=== PATIENT | female | born 1945 | race Two or more races ===

== ENCOUNTER 2024-04-06 13:02 | Inpatient (IN) | payer MEDICARE, OTHER ==
[~2024-04-06] VITALS: Ht 162.6 cm; Wt 61.7 kg
[2024-04-06] MEDS ORDERED: INSULIN REGULAR, HUMAN 100 UNIT/ML 10 ML VIAL ONE (13:15)
[2024-04-06] MEDS: IV NS 0.9% 500 ML BAG IV ONE (13:21)
[2024-04-06] MEDS: INSULIN REGULAR, HUMAN 100 UNIT/ML 10 ML VIAL SQ ONE (13:23)
[2024-04-06 13:47] LABS: BASOPHILS % (AUTO) 0.6 % (0.0-2.0); EOSINOPHILS # (AUTO) 0.1 K/uL (0.0-0.7); HEMATOCRIT 40 % (33-45); HEMOGLOBIN 13.8 g/dL (11.5-14.8); LYMPHOCYTES % (AUTO) 14.7 % (20.0-44.0); MEAN CORPUSCULAR HEMOGLOBIN 31 PG (26.0-33.0); MEAN CORPUSCULAR HGB CONC 35 g/dl (31.0-36.0); MEAN CORPUSCULAR VOLUME 90 fL (82-100); MONOCYTES # (AUTO) 0.3 K/uL (0.1-1.30); MONOCYTES % (AUTO) 4.5 % (2.0-12.0); NEUTROPHILS # (AUTO) 5.2 K/uL (1.8-8.9); NEUTROPHILS % (AUTO) 79.2 % (43.0-81.0); PLATELET COUNT (AUTO) 124 K/uL (150-450); RED CELL DISTRIBUTION WIDTH 12.7 % (11.5-15.0); WHITE BLOOD COUNT (AUTO) 6.5 K/uL (4.3-11.0)
[2024-04-06 14:31] LABS: APPEARANCE,URINE CLEAR (CLEAR); BILIRUBIN,URINE NEGATIVE (NEGATIVE); BLOOD, URINE NEGATIVE Ery/uL (NEGATIVE); COLOR,URINE YELLOW (YELLOW); KETONES,URINE NEGATIVE (NEGATIVE); LEUKOCYTE ESTERASE ,URINE NEGATIVE (NEGATIVE); NITRITE, URINE NEGATIVE (NEGATIVE); PROTEIN,URINE 3+ mg/dl (NEGATIVE); UGLUCOSE 3+ mg/dL (NEGATIVE); UROBILINOGEN,URINE 0.2 EU/dL (0.2)
[2024-04-06 14:43] LABS: ADD URINE CULTURE NO; BACTERIA,URINE Few /HPF (None Seen); RBC,URINE 0-2 /HPF (0-2); SQUAMOUS EPITHELIAL CELL,UR Few /HPF (None Seen)
[2024-04-06 14:44] LABS: COARSE GRANULAR CASTS,URINE Few /LPF (None Seen)
[2024-04-06 15:09] LABS: CALCIUM, SERUM 9.1 mg/dL (8.5-10.1); CARBON DIOXIDE 23 mmol/L (21-32); CHLORIDE 97 mmol/L (98-107); CREATININE 2.1 mg/dL (0.6-1.3); POTASSIUM 3.6 mmol/L (3.5-5.1); SODIUM SERUM 130 mmol/L (136-145); UREA NITROGEN, BLOOD 27 mg/dL (7-18)
[2024-04-06 15:11] LABS: ALANINE AMINOTRANSFERASE 15 U/L (12-78); ALBUMIN 1.7 g/dL (3.4-5.0); ALKALINE PHOSPHATASE 201 U/L (46-116); ASPARTATE AMINOTRANSFERASE 10 U/L (15-37); BILIRUBIN,DIRECT 0.2 mg/dL (0.0-0.2); BILIRUBIN,TOTAL 0.6 mg/dL (0.2-1.0); LIPASE 76 U/L (16-77); TOTAL PROTEIN, SERUM 5.7 g/dL (6.4-8.2)
[2024-04-06 15:12] LABS: GLUCOSE 664 mg/dL (74-106)
[2024-04-06] MEDS ORDERED: CALC500T53 PO (16:18)
[2024-04-06] MEDS ORDERED: LOSA100T31 PO (16:18)
[2024-04-06] MEDS ORDERED: HYDR100T27 PO (16:18)
[2024-04-06] MEDS ORDERED: INSU100I4 SQ (16:18)
[2024-04-06] MEDS ORDERED: FURO40TA5 PO (16:18)
[2024-04-06] MEDS ORDERED: ERGO500093 PO (16:18)
[2024-04-06] MEDS ORDERED: ATOR20TA PO (16:18)
[2024-04-06] MEDS ORDERED: LEVO75TA7 PO (16:18)
[2024-04-06] MEDS ORDERED: GLIP10TA11 PO (16:18)
[2024-04-06] MEDS ORDERED: INSU300I3 SQ (16:18)
[2024-04-06] MEDS ORDERED: LINA5TAB PO (16:18)
[2024-04-06] MEDS ORDERED: CARV12.52 PO (16:18)
[2024-04-06] MEDS ORDERED: MAGNESIUM HYDROXIDE 30 ML UDC PO PRN (16:30)
[2024-04-06] MEDS ORDERED: ONDANSETRON HCL/PF 4 MG/2 ML VIAL IVP PRN (16:30)
[2024-04-06] MEDS ORDERED: DEXTROSE 50%-WATER 50 ML DISP.SYRIN IV PRN ×2 (16:30)
[2024-04-06] MEDS ORDERED: INSULIN REGULAR, HUMAN 100 UNIT/ML 3 ML VIAL SQ PRN (16:30)
[2024-04-06] MEDS ORDERED: BLOOD SUGAR DIAGNOSTIC 1 EACH STRIP IN SCH (17:30)
[2024-04-06] MEDS: IV NS 0.9% 1,000 ML IV SCH (18:39)
[2024-04-06] MEDS: INSULIN REGULAR, HUMAN 100 UNIT/ML 3 ML VIAL SQ PRN (18:42)
[2024-04-06] MEDS: BLOOD SUGAR DIAGNOSTIC 1 EACH STRIP IN SCH (18:42)
[2024-04-06 19:51] VITALS: BP 160/60; TEMP 97.7; O2SAT 98
[2024-04-06 20:00] VITALS: BP 146/68; TEMP 98.2; O2SAT 96
[2024-04-06] MEDS: ACETAMINOPHEN 325 MG TABLET PO PRN (21:17)
[2024-04-06] MEDS: INSULIN GLARGINE, 100 UNIT/ML CARTRIDGE SQ SCH (22:22)
[2024-04-06] MEDS: *INSULIN REGULAR(HUMULIN R)HUM 100 UNIT/ML VIAL SQ PRN (22:24)
[2024-04-07 06:33] LABS: BASOPHILS # (AUTO) 0.1 K/uL (0.0-0.2); BASOPHILS % (AUTO) 0.8 % (0.0-2.0); EOSINOPHILS # (AUTO) 0.2 K/uL (0.0-0.7); EOSINOPHILS % (AUTO) 3.1 % (0.0-6.0); HEMATOCRIT 36 % (33-45); HEMOGLOBIN 12.9 g/dL (11.5-14.8); LYMPHOCYTES # (AUTO) 1.9 K/uL (0.8-4.8); LYMPHOCYTES % (AUTO) 27.2 % (20.0-44.0); MEAN CORPUSCULAR HEMOGLOBIN 32 PG (26.0-33.0); MEAN CORPUSCULAR HGB CONC 36 g/dl (31.0-36.0); MEAN CORPUSCULAR VOLUME 89 fL (82-100); MONOCYTES # (AUTO) 0.4 K/uL (0.1-1.30); MONOCYTES % (AUTO) 5.9 % (2.0-12.0); NEUTROPHILS # (AUTO) 4.5 K/uL (1.8-8.9); PLATELET COUNT (AUTO) 131 K/uL (150-450); RED BLOOD CELL COUNT(AUTO) 4.06 MIL/uL (4.0-5.2); RED CELL DISTRIBUTION WIDTH 13.2 % (11.5-15.0); WHITE BLOOD COUNT (AUTO) 7.1 K/uL (4.3-11.0)
[2024-04-07 06:47] LABS: CARBON DIOXIDE 28 mmol/L (21-32); CHLORIDE 105 mmol/L (98-107); CREATININE 1.7 mg/dL (0.6-1.3); GLUCOSE 91 mg/dL (74-106); PHOSPHORUS 2.9 mg/dL (2.5-4.9); POTASSIUM 2.9 mmol/L (3.5-5.1); SODIUM SERUM 140 mmol/L (136-145); UREA NITROGEN, BLOOD 26 mg/dL (7-18)
[2024-04-07] MEDS ORDERED: CLONIDINE HCL 0.1 MG TABLET PO PRN (07:30)
[2024-04-07 08:00] VITALS: BP 189/74; TEMP 97.5; O2SAT 98
[2024-04-07] MEDS: hydrALAZINE HCL 50 MG TABLET PO SCH (08:31)
[2024-04-07] MEDS: CALCIUM CARBONATE (1250) 500 MG TABLET PO SCH (08:32)
[2024-04-07] MEDS: LEVOTHYROXINE SODIUM 75 MCG TABLET PO SCH (08:32)
[2024-04-07] MEDS: CARVEDILOL 12.5 MG TABLET PO SCH (08:33)
[2024-04-07] MEDS: LOSARTAN POTASSIUM 50 MG TABLET PO SCH (08:33)
[2024-04-07] MEDS: LINAGLIPTIN 5 MG TABLET PO SCH (08:33)
[2024-04-07] MEDS: FUROSEMIDE 40 MG TABLET PO SCH (08:34)
[2024-04-07 09:45] VITALS: BP 145/65
[2024-04-07] MEDS: POTASSIUM CHLORIDE 20 MEQ TAB.PRT.SR PO ONE (10:36)
[2024-04-07] MEDS: POTASSIUM CHLORIDE 10 MEQ TABLET.SA PO ONE (10:36)
[2024-04-07] MEDS: MAG HYDROX/AL HYDROX/SIMETH 30 ML UDC PO PRN (15:44)
[2024-04-07 16:00] VITALS: BP 155/63; TEMP 98.4; O2SAT 95
[2024-04-07] MEDS: MORPHINE SULFATE INJ 2 MG/ML DISP.SYRIN IV PRN (17:31)
[2024-04-07 20:00] VITALS: BP 145/64; TEMP 98.2; O2SAT 97
[2024-04-07] MEDS: Z GUARD REMEDY 4 OZ OINT TP PRN (22:08)
[2024-04-08 07:40] LABS: CALCIUM, SERUM 8.8 mg/dL (8.5-10.1); CARBON DIOXIDE 27 mmol/L (21-32); CHLORIDE 109 mmol/L (98-107); CREATININE 1.5 mg/dL (0.6-1.3); GLUCOSE 84 mg/dL (74-106); POTASSIUM 3.1 mmol/L (3.5-5.1); SODIUM SERUM 141 mmol/L (136-145); UREA NITROGEN, BLOOD 25 mg/dL (7-18)
[2024-04-08 08:00] VITALS: BP 181/72; TEMP 97.9; O2SAT 98
[2024-04-08] MEDS: POTASSIUM CHLORIDE 10 MEQ TABLET.SA PO ONE (10:18)
[2024-04-08] MEDS: POTASSIUM CHLORIDE 20 MEQ TAB.PRT.SR PO ONE (10:18)
[2024-04-08 16:00] VITALS: BP 157/66; TEMP 98.4; O2SAT 97
[2024-04-08 20:00] VITALS: BP 137/57; TEMP 98.6; O2SAT 96
[2024-04-09 07:07] LABS: CALCIUM, SERUM 8.3 mg/dL (8.5-10.1); CARBON DIOXIDE 27 mmol/L (21-32); CHLORIDE 109 mmol/L (98-107); CREATININE 1.6 mg/dL (0.6-1.3); GLUCOSE 111 mg/dL (74-106); POTASSIUM 3.3 mmol/L (3.5-5.1); SODIUM SERUM 139 mmol/L (136-145); UREA NITROGEN, BLOOD 23 mg/dL (7-18)
[2024-04-09 08:00] VITALS: BP 194/65; TEMP 97.7; O2SAT 96
[2024-04-09] MEDS ORDERED: IV NS 0.9% 1,000 ML IV PRN (08:17)
[2024-04-09 08:35] VITALS: BP 174/67
[2024-04-09] MEDS ORDERED: HYDR-4303 PO (10:02)
[2024-04-09] MEDS ORDERED: Insulin Glargine,Hum SQ (10:02)
[2024-04-09] MEDS ORDERED: DOCU-141 PO (10:02)
[2024-04-09] MEDS ORDERED: CLON0.1T PO (10:02)
[2024-04-09] MEDS: POTASSIUM CHLORIDE 10 MEQ TABLET.SA PO ONE (11:04)
[2024-04-09 14:17] LABS: CREATININE, URINE 44.9 MG/DL (30.0-125.0); URINE TOTAL PROTEIN 561.2 mg/dL (0-11.9)
== END 2024-04-09 14:31 | DRG 637 ==
LOC: ER 13:12 → MED 15:40
PROVIDERS: ADMIT Internal Medicine; ATTEND Internal Medicine
DX: E11.00 Type 2 diabetes mellitus with hyperosmolarity without nonketotic hyperglycemic-hyperosmolar coma (NKHHC) (principal); E43 Unspecified severe protein-calorie malnutrition; N17.0 Acute kidney failure with tubular necrosis; G93.41 Metabolic encephalopathy; I13.0 Hypertensive heart and chronic kidney disease with heart failure and stage 1 through stage 4 chronic kidney disease, or unspecified chronic kidney disease; E87.1 Hypo-osmolality and hyponatremia; F03.93 Unspecified dementia, unspecified severity, with mood disturbance; I16.0 Hypertensive urgency; E03.9 Hypothyroidism, unspecified; E11.22 Type 2 diabetes mellitus with diabetic chronic kidney disease; E78.5 Hyperlipidemia, unspecified; E86.1 Hypovolemia; E87.6 Hypokalemia; E88.09 Other disorders of plasma-protein metabolism, not elsewhere classified; N18.9 Chronic kidney disease, unspecified; G89.29 Other chronic pain; Z79.4 Long term (current) use of insulin; M89.8X9 Other specified disorders of bone, unspecified site; I50.9 Heart failure, unspecified; F32.A Depression, unspecified; Z68.23 Body mass index [BMI] 23.0-23.9, adult; Z79.84 Long term (current) use of oral hypoglycemic drugs; Z91.199 Patient's noncompliance with other medical treatment and regimen due to unspecified reason
CPT/HCPCS: 36415; 71045-TC; 71100-TC; 76770-TC; 80048-TC; 80076-TC; 81001; 82570-TC; 82962-TC; 83690-TC; 83735-TC; 84100-TC; 84300-TC; 85025-TC; 97110-TC; 97116-TC; 97530-TC; G0378; J1815; J2270; J7030; J7040

== ENCOUNTER 2024-04-26 09:14 | Emergency (ER) | payer MEDICARE, OTHER ==
[~2024-04-26] VITALS: Ht 157.5 cm; Wt 59.0 kg
[~2024-04-26 09:14] MED LIST: ATOR20TA PO; CALC500T53 PO; CARV12.52 PO; CLON0.1T PO; DOCU-141 PO; ERGO500093 PO; HYDR-4303 PO; HYDR100T27 PO; INSU100I4 SQ; Insulin Glargine,Hum SQ; LEVO75TA7 PO; LINA5TAB PO; LOSA100T31 PO
[2024-04-26 10:52] LABS: BASOPHILS # (AUTO) 0.1 K/uL (0.0-0.2); BASOPHILS % (AUTO) 0.8 % (0.0-2.0); EOSINOPHILS # (AUTO) 0.2 K/uL (0.0-0.7); EOSINOPHILS % (AUTO) 3.1 % (0.0-6.0); HEMATOCRIT 34 % (33-45); HEMOGLOBIN 11.7 g/dL (11.5-14.8); LYMPHOCYTES # (AUTO) 1.2 K/uL (0.8-4.8); LYMPHOCYTES % (AUTO) 16.7 % (20.0-44.0); MEAN CORPUSCULAR HEMOGLOBIN 31 PG (26.0-33.0); MEAN CORPUSCULAR HGB CONC 35 g/dl (31.0-36.0); MEAN CORPUSCULAR VOLUME 90 fL (82-100); MONOCYTES # (AUTO) 0.3 K/uL (0.1-1.30); MONOCYTES % (AUTO) 3.5 % (2.0-12.0); NEUTROPHILS # (AUTO) 5.5 K/uL (1.8-8.9); NEUTROPHILS % (AUTO) 75.9 % (43.0-81.0); PLATELET COUNT (AUTO) 143 K/uL (150-450); RED BLOOD CELL COUNT(AUTO) 3.78 MIL/uL (4.0-5.2); RED CELL DISTRIBUTION WIDTH 13.3 % (11.5-15.0); WHITE BLOOD COUNT (AUTO) 7.3 K/uL (4.3-11.0)
[2024-04-26] MEDS ORDERED: NICARDIPINE IN DEXTROSE,ISO-OS 200 ML IV ONE (10:54)
[2024-04-26] MEDS: NICARDIPINE IN NACL, ISO-OSM 200 ML IV PRN (10:56)
[2024-04-26 11:01] LABS: CALCIUM, SERUM 8.7 mg/dL (8.5-10.1); CARBON DIOXIDE 26 mmol/L (21-32); CHLORIDE 108 mmol/L (98-107); GLUCOSE 135 mg/dL (74-106); POTASSIUM 3.6 mmol/L (3.5-5.1); SODIUM SERUM 138 mmol/L (136-145); UREA NITROGEN, BLOOD 36 mg/dL (7-18)
[2024-04-26 11:04] LABS: INR 1.07 (0.91-1.10); PARTIAL THROMBOPLASTIN TIME 24.3 SEC (24.3-34.3)
[2024-04-26 14:36] VITALS: BP 131/59; TEMP 97.7; O2SAT 95
== END 2024-04-26 15:39 ==
LOC: ER 09:22
DX: S06.5X0A Traumatic subdural hemorrhage without loss of consciousness, initial encounter (principal); N28.9 Disorder of kidney and ureter, unspecified; I10 Essential (primary) hypertension; E78.5 Hyperlipidemia, unspecified; E11.9 Type 2 diabetes mellitus without complications; E03.9 Hypothyroidism, unspecified; Z60.2 Problems related to living alone; W18.39XA Other fall on same level, initial encounter; Y93.89 Activity, other specified; Y92.89 Other specified places as the place of occurrence of the external cause; Y99.8 Other external cause status
CPT/HCPCS: 99291; 72125; 93005; 70450; 85025; 80048; 36415; 85730; A4223